=== PATIENT | female | born 1965 | race Caucasian/White ===

== ENCOUNTER 2021-09-15 06:44 | Day surgery (SDC) | payer BC, MEDICAID ==
[2021-09-15] MEDS ORDERED: Lactated Ringers 1,000 ML IV SCH (07:00)
[2021-09-15] MEDS ORDERED: Propofol 200 MG/20 ML SDV ONE ×2 (07:54→09:27)
[2021-09-15] MEDS ORDERED: fentaNYL 100 MCG/2 ML SDV ONE (07:54)
--- NOTE | 2021-09-15 14:22 | OR ---
PRE-OPERATIVE DIAGNOSES: 1. Chronic diarrhea over the past 3 months. The patient attributes this to starting on her Parkinson's medication. 2. Positive FIT stool card and history of positive Cologuard a couple years ago. POST-OPERATIVE DIAGNOSES: 1. Single 6-mm polyp at 25 cm, removed using hot snare. 2. Mild diffuse colitis and ileitis. Mucosa was mildly friable. Random biopsies were taken from the distal ileum, right colon, transverse colon, left colon, and rectal areas in separate containers. 3. Mild hemorrhoids, not acutely inflamed. PROCEDURE: Colonoscopy with polypectomy x1 using hot snare and then random biopsies using cold forceps. ANESTHESIA: Monitored anesthesia care. BOWEL PREP: Fair, did require moderate irrigation and suctioning. Evleyn is a 56-year-old female who was brought to the endoscopy suite after discussing risks and benefits of the procedure. Informed consent was obtained for conscious sedation and colonoscopy with or without biopsy and/or polypectomy. We also discussed possibility of missed lesions. Pre-procedure exam was unremarkable. IV, oxygen, and monitors were placed. The patient was placed in the left lateral decubitus position. Sedation was administered and a digital rectal exam was performed and unremarkable. Colonoscope was passed into the rectum and slowly advanced all the way to the cecum. Patient did require some abdominal pressure to obtain cecal intubation. Cecum was viewed and photographed. Ileocecal valve was intubated and distal ileum did reveal some mild appearing ileitis. Cold biopsies taken. The colonoscope was slowly withdrawn and the mucosa was closely observed in a direct circumferential manner. There was a mild diffuse colitis noted throughout the entire colon and random biopsies were taken from each segment separately. The ascending colon was unremarkable. The transverse colon was unremarkable. The descending colon was unremarkable. The sigmoid colon revealed 6-mm polyp at 25 cm, removed using hot snare. Retroflexion was performed and rectal mucosa was remarkable for some mild hemorrhoids, not acutely inflamed. Scope was removed. The patient tolerated the procedure well. The patient was monitored until that baseline status. Discharge instructions were reviewed and the patient was discharged in good condition. COMPLICATIONS: None. TOTAL TIME: 37 minutes. ESTIMATED BLOOD LOSS: 1 to 2 mL. RECOMMENDATIONS/FOLLOW-UP: We will await results of path report to determine ideal followup interval as well as the need for any additional referral. Looking through her med list, could have a colitis related to NSAID use. May need to consider stopping Mobic. I would like to kindly thank Kirtsie Shelby for this referral. DMB: 09/15/2021 11:10:12 MODL: 09/15/2021 12:55:42 /[id number]
== END 2021-09-15 10:59 | disposition home or self-care (01) ==
LOC: VM.SDS 06:44
PROVIDERS: ATTEND Family Medicine
DX: D12.5 Benign neoplasm of sigmoid colon (principal); K52.9 Noninfective gastroenteritis and colitis, unspecified; K64.9 Unspecified hemorrhoids; K63.89 Other specified diseases of intestine; E03.4 Atrophy of thyroid (acquired); E78.5 Hyperlipidemia, unspecified; E66.9 Obesity, unspecified; G20 Parkinson's disease; F41.9 Anxiety disorder, unspecified; I10 Essential (primary) hypertension; F32.9 Major depressive disorder, single episode, unspecified; Z79.899 Other long term (current) drug therapy; Z79.890 Hormone replacement therapy; Z98.890 Other specified postprocedural states; Z87.891 Personal history of nicotine dependence; Z68.32 Body mass index [BMI] 32.0-32.9, adult
CPT/HCPCS: 00812; J2704; J3010; J7120

== ENCOUNTER 2021-11-26 17:13 | Emergency (ER) | payer BC, MEDICAID ==
[2021-11-26] MEDS ORDERED: HYDROmorphone 0.5 MG/0.5 ML Syringe IV ONE (17:56)
[2021-11-26 18:28] LABS: PTT,PARTIAL THROMBOPLSTIN TIME 28.1 SEC (20.5-30.9)
[2021-11-26] MEDS ORDERED: HYDROmorphone 1 MG/ML Syringe IVPUSH ONE ×2 (18:29→20:05)
[2021-11-26 18:30] LABS: ANION GAP 12.2 mmol/L (5-15); CHLORIDE,CL 106 mmol/L (98-107); SODIUM,NA 138 mmol/L (136-145)
== END 2021-11-26 20:20 | disposition short-term general hospital (02) ==
LOC: VM.ED 17:13
DX: S72.002A Fracture of unspecified part of neck of left femur, initial encounter for closed fracture (principal); I10 Essential (primary) hypertension; E03.9 Hypothyroidism, unspecified; E66.9 Obesity, unspecified; Z68.30 Body mass index [BMI] 30.0-30.9, adult; Z79.899 Other long term (current) drug therapy; W00.0XXA Fall on same level due to ice and snow, initial encounter
CPT/HCPCS: 36415; 80053; 85025; 85610; 85730; 96374; 96375; 96376; 99283; 99285-25; J1170; J3360

== ENCOUNTER 2025-03-26 19:09 | Emergency (ER) | payer MEDICARE ==
[2025-03-26] MEDS: Take Home: Acetaminophen/HYDROcodone 325-5 MG, 5 Tab Pack PO ONE (20:45)
== END 2025-03-26 20:54 | disposition home or self-care (01) ==
LOC: VM.ED 19:09
DX: S22.080A Wedge compression fracture of T11-T12 vertebra, initial encounter for closed fracture (principal); S82.831A Other fracture of upper and lower end of right fibula, initial encounter for closed fracture; I10 Essential (primary) hypertension; E66.9 Obesity, unspecified; Z68.32 Body mass index [BMI] 32.0-32.9, adult; E05.90 Thyrotoxicosis, unspecified without thyrotoxic crisis or storm; Z79.899 Other long term (current) drug therapy; Z79.890 Hormone replacement therapy; W01.0XXA Fall on same level from slipping, tripping and stumbling without subsequent striking against object, initial encounter
CPT/HCPCS: 99284; A9270; 71250; 73610-RT

== ENCOUNTER 2025-04-13 13:21 | Emergency (ER) | payer MEDICARE ==
[2025-04-13] MEDS: HYDROmorphone 1 MG/ML Syringe SUBCUT ONE (13:51)
== END 2025-04-13 15:50 | disposition home or self-care (01) ==
LOC: VM.ED 13:21
DX: S92.354A Nondisplaced fracture of fifth metatarsal bone, right foot, initial encounter for closed fracture (principal); I10 Essential (primary) hypertension; J45.909 Unspecified asthma, uncomplicated; E66.9 Obesity, unspecified; Z68.32 Body mass index [BMI] 32.0-32.9, adult; Z79.899 Other long term (current) drug therapy; W19.XXXA Unspecified fall, initial encounter
CPT/HCPCS: 72100; 72170; 73610-RT; 73630-RT; 96372; 99283; J1171

== ENCOUNTER 2025-05-07 17:28 | Inpatient (IN) | payer MEDICARE ==
[2025-05-07 18:15] LABS: PLATELET COUNT,PLT 247 x10^3/uL (130-400); RED BLOOD CELL COUNT 3.18 x10^6/uL (4.00-5.50); WHITE BLOOD CELL COUNT,WBC 5.0 x10^3/uL (4.0-10.0)
[2025-05-07 18:29] LABS: EOSINOPHILS ABSOLUTE MAN 0.1 x10^3/uL (0.0-0.5); EOSINOPHILS PERCENT MAN 1 % (0-4); LYMPHOCYTES ABSOLUTE MAN 0.7 x10^3/uL (1.0-4.8); LYMPHOCYTES PERCENT MAN 14 % (25-50); MONOCYTES ABSOLUTE MAN 0.6 x10^3/uL (0.0-0.8); MONOCYTES PERCENT MAN 11 % (2-11); NEUTROPHILS ABSOLUTE MAN 3.7 x10^3/uL (1.8-7.7); PLATELET COUNT ESTIMATE ADEQUATE; SEG NEUTROPHILS PERCENT MAN 74 % (50-80)
[2025-05-07 18:35] LABS: A/G RATIO 1.26; ALANINE AMINOTRANSFERASE,ALT 7 U/L (14-59); ASPARTATE AMNIOTRANSFERASE,AST 28 U/L (15-37); BILIRUBIN TOTAL 0.7 mg/dL (0.2-1.0); BLOOD UREA NITROGEN,BUN 52 mg/dL (7-18); CARBON DIOXIDE,CO2 30 mmol/L (21-32); CHLORIDE,CL 98 mmol/L (98-107); CREATININE 1.8 mg/dL (0.55-1.02); GLUCOSE RANDOM 112 mg/dL (70-99); POTASSIUM,K 3.9 mmol/L (3.5-5.1); PROTEIN TOTAL,TP 6.1 g/dL (6.4-8.2); SODIUM,NA 136 mmol/L (136-145)
[2025-05-07 18:38] LABS: ESTIMATED GFR 32 mL/min (>=60)
[2025-05-07] MEDS ORDERED: Albuterol HFA 18 Gm Inhaler INH PRN (21:11)
[2025-05-08 07:12] LABS: PLATELET COUNT,PLT 220 x10^3/uL (130-400); RED BLOOD CELL COUNT 3.22 x10^6/uL (4.00-5.50); WHITE BLOOD CELL COUNT,WBC 3.5 x10^3/uL (4.0-10.0)
[2025-05-08 07:15] LABS: BLOOD UREA NITROGEN,BUN 45.0 mg/dL (7-18); CARBON DIOXIDE,CO2 27.0 mmol/L (21-32); CHLORIDE,CL 103.0 mmol/L (98-107); CREATININE 1.3 mg/dL (0.55-1.02); EST CRCL DRUG DOSING (CG) 40.89 mL/min; GLUCOSE RANDOM 81.0 mg/dL (70-99); POTASSIUM,K 3.8 mmol/L (3.5-5.1); SODIUM,NA 139.0 mmol/L (136-145)
[2025-05-08 07:16] LABS: ESTIMATED GFR 47.0 mL/min (>=60)
[2025-05-08 07:31] LABS: EOSINOPHILS ABSOLUTE MAN 0.2 x10^3/uL (0.0-0.5); EOSINOPHILS PERCENT MAN 5 % (0-4); LYMPHOCYTES ABSOLUTE MAN 1.2 x10^3/uL (1.0-4.8); LYMPHOCYTES PERCENT MAN 33 % (25-50); MONOCYTES ABSOLUTE MAN 0.5 x10^3/uL (0.0-0.8); MONOCYTES PERCENT MAN 13 % (2-11); NEUTROPHILS ABSOLUTE MAN 1.7 x10^3/uL (1.8-7.7); SEG NEUTROPHILS PERCENT MAN 49 % (50-80)
[2025-05-08 07:32] LABS: PLATELET COUNT ESTIMATE ADEQUATE
[2025-05-08] MEDS: Venlafaxine 75 MG Cap.ER PO SCH (08:59)
[2025-05-08] MEDS: LEVODOPA PO SCH (14:24)
[2025-05-08] MEDS: CARBIDOPA PO SCH (14:24)
[2025-05-08] MEDS: FLUTICASONE INH SCH (14:39)
[2025-05-08] MEDS: UMECLIDIN INH SCH (14:39)
[2025-05-08] MEDS: VILANTEROL INH SCH (14:39)
[2025-05-08] MEDS: Fluticasone Propionate Nasal Spray 9.9 ML BOTTLE NAS SCH (15:11)
[2025-05-09 07:36] LABS: PLATELET COUNT,PLT 208.0 x10^3/uL (130-400); RED BLOOD CELL COUNT 3.11 x10^6/uL (4.00-5.50)
[2025-05-09 07:51] LABS: WHITE BLOOD CELL COUNT,WBC 4.5 x10^3/uL (4.0-10.0)
[2025-05-09 07:57] LABS: A/G RATIO 1.04; ASPARTATE AMNIOTRANSFERASE,AST 18 U/L (15-37); BILIRUBIN TOTAL 0.3 mg/dL (0.2-1.0); BLOOD UREA NITROGEN,BUN 35 mg/dL (7-18); CARBON DIOXIDE,CO2 28 mmol/L (21-32); CHLORIDE,CL 106 mmol/L (98-107); CREATININE 1.1 mg/dL (0.55-1.02); EST CRCL DRUG DOSING (CG) 48.33 mL/min; GLUCOSE RANDOM 137 mg/dL (70-99); POTASSIUM,K 3.8 mmol/L (3.5-5.1); PROTEIN TOTAL,TP 5.7 g/dL (6.4-8.2); SODIUM,NA 139 mmol/L (136-145)
[2025-05-09 07:59] LABS: ALANINE AMINOTRANSFERASE,ALT < 6 U/L (14-59); ESTIMATED GFR 57 mL/min (>=60)
[2025-05-09] MEDS ORDERED: Fluticasone Propionate Nasal Spray 9.9 ML BOTTLE NAS SCH (09:00)
[2025-05-10 07:56] LABS: PLATELET COUNT,PLT 255.0 x10^3/uL (130-400); RED BLOOD CELL COUNT 3.25 x10^6/uL (4.00-5.50)
[2025-05-10 08:08] LABS: A/G RATIO 0.97; ALANINE AMINOTRANSFERASE,ALT 7.0 U/L (14-59); ASPARTATE AMNIOTRANSFERASE,AST 16.0 U/L (15-37); BILIRUBIN TOTAL 0.4 mg/dL (0.2-1.0); BLOOD UREA NITROGEN,BUN 20.0 mg/dL (7-18); CARBON DIOXIDE,CO2 28.0 mmol/L (21-32); CHLORIDE,CL 106.0 mmol/L (98-107); CREATININE 0.9 mg/dL (0.55-1.02); EST CRCL DRUG DOSING (CG) 59.07 mL/min; GLUCOSE RANDOM 89.0 mg/dL (70-99); POTASSIUM,K 4.4 mmol/L (3.5-5.1); PROTEIN TOTAL,TP 6.1 g/dL (6.4-8.2); SODIUM,NA 140.0 mmol/L (136-145)
[2025-05-10 08:12] LABS: ESTIMATED GFR 73.0 mL/min (>=60); WHITE BLOOD CELL COUNT,WBC 6.6 x10^3/uL (4.0-10.0)
[2025-05-10] MEDS: Acetaminophen/HYDROcodone 325-5 MG Tab PO PRN (12:57)
== END 2025-05-10 15:52 | disposition swing bed (61) | DRG 57 ==
LOC: VM.ED 17:28 → VM.MS 19:42 → OBSVTOIN 05-08 12:00
PROVIDERS: ADMIT Family Medicine; ATTEND Internal Medicine
DX: G20.B1 Parkinson's disease with dyskinesia, without mention of fluctuations (principal); I42.9 Cardiomyopathy, unspecified; K90.9 Intestinal malabsorption, unspecified; N17.9 Acute kidney failure, unspecified; E86.0 Dehydration; I95.2 Hypotension due to drugs; Z66 Do not resuscitate; R53.81 Other malaise; I95.9 Hypotension, unspecified; M19.90 Unspecified osteoarthritis, unspecified site; I12.9 Hypertensive chronic kidney disease with stage 1 through stage 4 chronic kidney disease, or unspecified chronic kidney disease; F98.8 Other specified behavioral and emotional disorders with onset usually occurring in childhood and adolescence; J45.909 Unspecified asthma, uncomplicated; F41.9 Anxiety disorder, unspecified; F32.A Depression, unspecified; D64.9 Anemia, unspecified; E66.9 Obesity, unspecified; E03.9 Hypothyroidism, unspecified; K52.9 Noninfective gastroenteritis and colitis, unspecified; N18.31 Chronic kidney disease, stage 3a; D63.1 Anemia in chronic kidney disease; T46.5X5A Adverse effect of other antihypertensive drugs, initial encounter; Z68.34 Body mass index [BMI] 34.0-34.9, adult; Z98.49 Cataract extraction status, unspecified eye; Y92.89 Other specified places as the place of occurrence of the external cause; Z87.891 Personal history of nicotine dependence; N18.32 Chronic kidney disease, stage 3b; Z79.52 Long term (current) use of systemic steroids; S22.080S Wedge compression fracture of T11-T12 vertebra, sequela; Z79.899 Other long term (current) drug therapy; Z79.890 Hormone replacement therapy; T50.1X5A Adverse effect of loop [high-ceiling] diuretics, initial encounter; Z79.51 Long term (current) use of inhaled steroids; W01.198A Fall on same level from slipping, tripping and stumbling with subsequent striking against other object, initial encounter; Y93.89 Activity, other specified
CPT/HCPCS: 36415 ×2; 80048; 80053; 83735; 85025 ×2; 99285; A9270 ×10; G0378; J1650; J7030 ×2; Q3014; 84484; 85027; 93005; 97161-GP; 97165-GO; 97535-GO; 99284

== ENCOUNTER 2025-05-10 10:05 | Inpatient (IN) | payer MEDICARE ==
[2025-05-10] MEDS ORDERED: Albuterol HFA 18 Gm Inhaler INH PRN (15:11)
[2025-05-11 06:47] LABS: PLATELET COUNT,PLT 279.0 x10^3/uL (130-400); RED BLOOD CELL COUNT 3.12 x10^6/uL (4.00-5.50); WHITE BLOOD CELL COUNT,WBC 8.5 x10^3/uL (4.0-10.0)
[2025-05-11 07:15] LABS: A/G RATIO 0.88; ALANINE AMINOTRANSFERASE,ALT 9.0 U/L (14-59); ASPARTATE AMNIOTRANSFERASE,AST 18.0 U/L (15-37); BILIRUBIN TOTAL 0.4 mg/dL (0.2-1.0); BLOOD UREA NITROGEN,BUN 20.0 mg/dL (7-18); CARBON DIOXIDE,CO2 31.0 mmol/L (21-32); CHLORIDE,CL 107.0 mmol/L (98-107); CREATININE 0.8 mg/dL (0.55-1.02); EST CRCL DRUG DOSING (CG) 66.45 mL/min; GLUCOSE RANDOM 86.0 mg/dL (70-99); POTASSIUM,K 4.5 mmol/L (3.5-5.1); PROTEIN TOTAL,TP 6.0 g/dL (6.4-8.2); SODIUM,NA 139.0 mmol/L (136-145)
[2025-05-11 07:17] LABS: ESTIMATED GFR 84.0 mL/min (>=60)
[2025-05-11] MEDS: Venlafaxine 75 MG Cap.ER PO SCH (08:35)
[2025-05-11] MEDS: Fluticasone Propionate Nasal Spray 9.9 ML BOTTLE NAS SCH (08:36)
[2025-05-11] MEDS: VILANTEROL INH SCH (08:37)
[2025-05-11] MEDS: UMECLIDIN INH SCH (08:37)
[2025-05-11] MEDS: FLUTICASONE INH SCH (08:37)
[2025-05-11] MEDS: [UNRECOGNIZED DRUG - REMARK] EYEBOTH SCH (10:12)
[2025-05-11] MEDS: Acetaminophen/HYDROcodone 325-5 MG Tab PO PRN (11:20)
[2025-05-13] MEDS: LEVODOPA PO SCH (10:08)
[2025-05-13] MEDS: CARBIDOPA PO SCH (10:08)
[2025-05-13] MEDS: Sennosides/Docusate Sodium 50-8.6 MG Tab PO SCH (10:10)
[2025-05-14 07:13] LABS: BASOPHILS ABSOLUTE AUTO 0.0 x10^3/uL (0.0-0.2); BASOPHILS PERCENT AUTO 0.2 % (0.2-1.2); EOSINOPHILS ABSOLUTE AUTO 0.4 x10^3/uL (0.0-0.5); EOSINOPHILS PERCENT AUTO 8.7 % (0.0-4.0); IMMATURE GRAN ABSOLUTE AUTO 0.01 x10^3/uL (0.00-0.07); IMMATURE GRAN PERCENT AUTO 0.20 % (0.00-0.43); LYMPHOCYTES ABSOLUTE AUTO 1.2 x10^3/uL (1.0-4.8); LYMPHOCYTES PERCENT AUTO 24.1 % (25.0-50.0); MONOCYTES ABSOLUTE AUTO 0.4 x10^3/uL (0.0-0.8); MONOCYTES PERCENT AUTO 8.5 % (2.0-11.0); NEUTROPHILS ABSOLUTE AUTO 3.0 x10^3/uL (1.8-7.7); NEUTROPHILS PERCENT AUTO 58.3 % (50.0-80.0); RED BLOOD CELL COUNT 3.13 x10^6/uL (4.00-5.50); WHITE BLOOD CELL COUNT,WBC 5.1 x10^3/uL (4.0-10.0)
[2025-05-14 07:16] LABS: A/G RATIO 0.94; ALANINE AMINOTRANSFERASE,ALT 6.0 U/L (14-59); ASPARTATE AMNIOTRANSFERASE,AST 24.0 U/L (15-37); BILIRUBIN TOTAL 0.4 mg/dL (0.2-1.0); BLOOD UREA NITROGEN,BUN 20.0 mg/dL (7-18); CARBON DIOXIDE,CO2 27.0 mmol/L (21-32); CHLORIDE,CL 106.0 mmol/L (98-107); CREATININE 0.9 mg/dL (0.55-1.02); EST CRCL DRUG DOSING (CG) 59.07 mL/min; GLUCOSE RANDOM 88.0 mg/dL (70-99); POTASSIUM,K 4.6 mmol/L (3.5-5.1); PROTEIN TOTAL,TP 6.2 g/dL (6.4-8.2); SODIUM,NA 141.0 mmol/L (136-145)
[2025-05-14 07:17] LABS: ESTIMATED GFR 73.0 mL/min (>=60)
[2025-05-14 07:28] LABS: PLATELET COUNT,PLT 235 x10^3/uL (130-400)
[2025-05-19 06:46] LABS: BASOPHILS ABSOLUTE AUTO 0.0 x10^3/uL (0.0-0.2); BASOPHILS PERCENT AUTO 0.2 % (0.2-1.2); EOSINOPHILS ABSOLUTE AUTO 0.5 x10^3/uL (0.0-0.5); EOSINOPHILS PERCENT AUTO 12.3 % (0.0-4.0); IMMATURE GRAN ABSOLUTE AUTO 0.00 x10^3/uL (0.00-0.07); IMMATURE GRAN PERCENT AUTO 0.00 % (0.00-0.43); LYMPHOCYTES ABSOLUTE AUTO 0.8 x10^3/uL (1.0-4.8); LYMPHOCYTES PERCENT AUTO 18.0 % (25.0-50.0); MONOCYTES ABSOLUTE AUTO 0.4 x10^3/uL (0.0-0.8); MONOCYTES PERCENT AUTO 10.0 % (2.0-11.0); NEUTROPHILS ABSOLUTE AUTO 2.6 x10^3/uL (1.8-7.7); NEUTROPHILS PERCENT AUTO 59.5 % (50.0-80.0); RED BLOOD CELL COUNT 3.14 x10^6/uL (4.00-5.50); WHITE BLOOD CELL COUNT,WBC 4.4 x10^3/uL (4.0-10.0)
[2025-05-19 07:03] LABS: PLATELET COUNT,PLT 234 x10^3/uL (130-400)
[2025-05-19 07:09] LABS: BLOOD UREA NITROGEN,BUN 18.0 mg/dL (7-18); CARBON DIOXIDE,CO2 27.0 mmol/L (21-32); CHLORIDE,CL 108.0 mmol/L (98-107); CREATININE 1.0 mg/dL (0.55-1.02); EST CRCL DRUG DOSING (CG) 53.16 mL/min; GLUCOSE RANDOM 91.0 mg/dL (70-99); POTASSIUM,K 4.3 mmol/L (3.5-5.1); SODIUM,NA 144.0 mmol/L (136-145)
[2025-05-19 07:20] LABS: ESTIMATED GFR 64.0 mL/min (>=60)
[2025-05-21] MEDS: VENLAFAXINE PO SCH (08:22)
[2025-05-21] MEDS: Albuterol HFA 18 Gm Inhaler (OWN SUPPLY) INH PRN (11:20)
[2025-05-21] MEDS: Fluticasone Propionate Nasal Spray 9.9 ML BOTTLE NASBOTH PRN (18:11)
[2025-05-26 06:51] LABS: BASOPHILS ABSOLUTE AUTO 0.0 x10^3/uL (0.0-0.2); BASOPHILS PERCENT AUTO 0.2 % (0.2-1.2); EOSINOPHILS ABSOLUTE AUTO 0.5 x10^3/uL (0.0-0.5); EOSINOPHILS PERCENT AUTO 9.6 % (0.0-4.0); IMMATURE GRAN ABSOLUTE AUTO 0.00 x10^3/uL (0.00-0.07); IMMATURE GRAN PERCENT AUTO 0.00 % (0.00-0.43); LYMPHOCYTES ABSOLUTE AUTO 0.9 x10^3/uL (1.0-4.8); LYMPHOCYTES PERCENT AUTO 16.0 % (25.0-50.0); MONOCYTES ABSOLUTE AUTO 0.4 x10^3/uL (0.0-0.8); MONOCYTES PERCENT AUTO 7.9 % (2.0-11.0); NEUTROPHILS ABSOLUTE AUTO 3.6 x10^3/uL (1.8-7.7); NEUTROPHILS PERCENT AUTO 66.3 % (50.0-80.0); PLATELET COUNT,PLT 265 x10^3/uL (130-400); RED BLOOD CELL COUNT 3.66 x10^6/uL (4.00-5.50); WHITE BLOOD CELL COUNT,WBC 5.4 x10^3/uL (4.0-10.0)
[2025-05-26 07:34] LABS: A/G RATIO 1.0; ALANINE AMINOTRANSFERASE,ALT 10.0 U/L (14-59); ASPARTATE AMNIOTRANSFERASE,AST 15.0 U/L (15-37); BILIRUBIN TOTAL 0.7 mg/dL (0.2-1.0); BLOOD UREA NITROGEN,BUN 20.0 mg/dL (7-18); CARBON DIOXIDE,CO2 23.0 mmol/L (21-32); CHLORIDE,CL 105.0 mmol/L (98-107); CREATININE 0.8 mg/dL (0.55-1.02); EST CRCL DRUG DOSING (CG) 66.45 mL/min; ESTIMATED GFR 84.0 mL/min (>=60); GLUCOSE RANDOM 90.0 mg/dL (70-99); POTASSIUM,K 4.1 mmol/L (3.5-5.1); PROTEIN TOTAL,TP 7.2 g/dL (6.4-8.2); SODIUM,NA 142.0 mmol/L (136-145)
[2025-05-26] MEDS: Sennosides/Docusate Sodium 50-8.6 MG Tab PO SCH (20:12)
[2025-05-27] MEDS ORDERED: Sennosides/Docusate Sodium 50-8.6 MG Tab PO PRN (08:17)
[2025-06-04 08:50] LABS: PLATELET COUNT,PLT 230.0 x10^3/uL (130-400); RED BLOOD CELL COUNT 3.82 x10^6/uL (4.00-5.50); WHITE BLOOD CELL COUNT,WBC 4.6 x10^3/uL (4.0-10.0)
[2025-06-04 09:04] LABS: BLOOD UREA NITROGEN,BUN 23.0 mg/dL (7-18); CARBON DIOXIDE,CO2 29.0 mmol/L (21-32); CHLORIDE,CL 102.0 mmol/L (98-107); CREATININE 1.0 mg/dL (0.55-1.02); EST CRCL DRUG DOSING (CG) 53.16 mL/min; GLUCOSE RANDOM 122.0 mg/dL (70-99); POTASSIUM,K 3.9 mmol/L (3.5-5.1); SODIUM,NA 139.0 mmol/L (136-145)
[2025-06-04 09:06] LABS: ESTIMATED GFR 64.0 mL/min (>=60)
== END 2025-06-05 10:40 | disposition home health service (06) | DRG 948 ==
LOC: VM.MS 15:11
PROVIDERS: ADMIT Nurse Practitioner Family; ATTEND Internal Medicine
DX: R53.81 Other malaise (principal); I42.9 Cardiomyopathy, unspecified; I50.32 Chronic diastolic (congestive) heart failure; S92.321K Displaced fracture of second metatarsal bone, right foot, subsequent encounter for fracture with nonunion; I95.2 Hypotension due to drugs; S22.080S Wedge compression fracture of T11-T12 vertebra, sequela; S92.351G Displaced fracture of fifth metatarsal bone, right foot, subsequent encounter for fracture with delayed healing; S81.011A Laceration without foreign body, right knee, initial encounter; Z66 Do not resuscitate; M19.90 Unspecified osteoarthritis, unspecified site; F41.9 Anxiety disorder, unspecified; F32.A Depression, unspecified; E03.9 Hypothyroidism, unspecified; G20.B1 Parkinson's disease with dyskinesia, without mention of fluctuations; I11.0 Hypertensive heart disease with heart failure; J42 Unspecified chronic bronchitis; D63.8 Anemia in other chronic diseases classified elsewhere; G62.9 Polyneuropathy, unspecified; R29.6 Repeated falls; G31.84 Mild cognitive impairment of uncertain or unknown etiology; Z79.899 Other long term (current) drug therapy; Z79.52 Long term (current) use of systemic steroids; Z79.890 Hormone replacement therapy; T50.2X5D Adverse effect of carbonic-anhydrase inhibitors, benzothiadiazides and other diuretics, subsequent encounter; W18.30XD Fall on same level, unspecified, subsequent encounter
CPT/HCPCS: 36415; 72070; 72128; 73620-RT; 80048; 80053; 85025; 85027; 94640; 97110-GO; 97110-GP; 97116-GP; 97530-GO; 97530-GP; 97535-GO; A9270-GY; J1650